=== PATIENT | female | born 1935 | race Caucasian/White ===

== ENCOUNTER 2021-05-18 07:34 | Outpatient (CLI) | payer MEDICARE | END 2021-05-18 07:35 | disposition home or self-care (01) | LOC: CSHRAD 07:34 | PROVIDERS: ATTEND Otolaryngology Plastic Surgery within the Head & Neck | DX: R13.10 Dysphagia, unspecified (principal); K21.9 Gastro-esophageal reflux disease without esophagitis | CPT/HCPCS: 74220 ==